=== PATIENT | male | born 1970 | race Caucasian/White ===

== ENCOUNTER 2020-12-04 21:00 | Emergency (ER) | payer BC ==
[~2020-12-04] VITALS: Ht 165.1 cm; Wt 103.4 kg
[~2020-12-04 21:00] MED LIST: FLEXERIL 10 MG10 MG PO; IBUPROFEN600 MG PO
== END 2020-12-05 02:52 | disposition home or self-care (01) ==
LOC: ER1 21:00
DX: U07.1 COVID-19 (principal); E11.9 Type 2 diabetes mellitus without complications; I10 Essential (primary) hypertension; Z90.89 Acquired absence of other organs; Z23 Encounter for immunization
CPT/HCPCS: 99283; M0243